=== PATIENT | male | born 1960 | race Caucasian/White ===

== ENCOUNTER → 2021-07-19 | Outpatient (CLI) | payer MEDICARE, MEDICAID ==
[~2021-07-19] MED LIST: CATAPRES PO; CITALOPRAM40 MG PO; DEPAKOTE DR500 MG PO; HALDOL 2MG T2 MG/TAB PO; HALDOL 5MG T5 MG/TAB PO; KLONOPIN 1MG1 M1 PO; PRILOSEC 20MG20 MG PO; ZYPREXA ZYDIS20 MG PO
[2021-07-19 15:20] LABS: BASO # 0.03 K/mm3 (0.02-0.10); EOS # 0.28 K/mm3 (0.04-0.40); EOS % 4.3 % (0.0-4.0); HEMATOCRIT 33.8 % (42.0-52.0); HEMOGLOBIN 10.7 g/dL (13.5-18.0); LYMPH# 1.26 K/mm3 (1.50-4.00); MEAN CELL VOLUME 89 fl (78-100); MEAN CORPUSCULAR HEMOGLOBIN 28 pg (27-31); MEAN CORPUSCULAR HGB CONC 32 g/dL (33-37); MEAN PLATELET VOLUME 9.7 fl (7.4-10.4); MONO # 0.78 K/mm3 (0.20-0.80); NEU # 4.21 K/mm3 (1.40-6.50); PLATELET COUNT 222 K/mm3 (130-400); RED BLOOD COUNT 3.79 M/mm3 (4.20-5.60); RED CELL DISTRIBUTION WIDTH 13.8 % (11.5-14.5); WHITE BLOOD COUNT 6.6 K/mm3 (4.8-10.8)
[2021-07-19 15:29] LABS: POTASSIUM 4.1 mmol/L (3.5-5.1)
[2021-07-19 15:30] LABS: ALBUMIN 3.5 g/dL (3.4-4.8)
[2021-07-19 15:32] LABS: TOTAL PROTEIN 7.4 g/dL (6.2-8.1)
[2021-07-19 15:42] LABS: TOTAL BILIRUBIN 0.1 mg/dL (0.2-1.2)
== END ==
LOC: LAB 14:58
PROVIDERS: Internal Medicine
DX: Z12.5 Encounter for screening for malignant neoplasm of prostate (principal); E78.2 Mixed hyperlipidemia; K90.9 Intestinal malabsorption, unspecified; D64.9 Anemia, unspecified; F91.1 Conduct disorder, childhood-onset type; F51.04 Psychophysiologic insomnia

== ENCOUNTER → 2022-04-29 | Outpatient (CLI) | payer MEDICARE, MEDICAID ==
[2022-04-29 12:45] LABS: BASO # 0.02 K/mm3 (0.02-0.10); HEMATOCRIT 37.6 % (42.0-52.0); LYMPH# 1.18 K/mm3 (1.50-4.00); MEAN CELL VOLUME 90 fl (78-100); MEAN CORPUSCULAR HEMOGLOBIN 26 pg (27-31); MEAN CORPUSCULAR HGB CONC 29 g/dL (33-37); MEAN PLATELET VOLUME 10.7 fl (7.4-10.4); MONO # 0.46 K/mm3 (0.20-0.80); NEU # 3.27 K/mm3 (1.40-6.50); PLATELET COUNT 218 K/mm3 (130-400); RED BLOOD COUNT 4.18 M/mm3 (4.20-5.60); RED CELL DISTRIBUTION WIDTH 16.1 % (11.5-14.5)
[2022-04-29 12:52] LABS: ALBUMIN 3.6 g/dL (3.4-4.8); POTASSIUM 4.2 mmol/L (3.5-5.1)
[2022-04-29 12:53] LABS: CALCIUM 9.2 mg/dL (8.3-10.5)
[2022-04-29 12:54] LABS: TOTAL PROTEIN 7.8 g/dL (6.2-8.1)
[2022-04-29 13:01] LABS: MAGNESIUM 1.9 mg/dL (1.60-2.60)
[2022-04-29 14:05] LABS: TOTAL BILIRUBIN 0.3 mg/dL (0.2-1.2)
[2022-04-29 14:12] LABS: ERYTHROCYTE SEDIMENTATION RATE 13 mm/hr (0-20)
== END ==
LOC: LAB 12:10
PROVIDERS: Internal Medicine
DX: Z12.5 Encounter for screening for malignant neoplasm of prostate (principal); K90.9 Intestinal malabsorption, unspecified; D64.9 Anemia, unspecified; J69.0 Pneumonitis due to inhalation of food and vomit; E78.2 Mixed hyperlipidemia; F91.1 Conduct disorder, childhood-onset type; M21.069 Valgus deformity, not elsewhere classified, unspecified knee

== ENCOUNTER → 2023-04-21 | Outpatient (CLI) | payer MEDICARE, MEDICAID ==
[2023-04-21 10:46] LABS: BASO # 0.03 K/mm3 (0.02-0.10); HEMATOCRIT 34.3 % (42.0-52.0); HEMOGLOBIN 11.1 g/dL (13.5-18.0); LYMPH# 1.18 K/mm3 (1.50-4.00); MEAN CELL VOLUME 89 fl (78-100); MEAN CORPUSCULAR HEMOGLOBIN 29 pg (27-31); MEAN CORPUSCULAR HGB CONC 32 g/dL (33-37); MEAN PLATELET VOLUME 10.3 fl (7.4-10.4); MONO # 0.48 K/mm3 (0.20-0.80); NEU # 3.33 K/mm3 (1.40-6.50); PLATELET COUNT 211 K/mm3 (130-400); RED BLOOD COUNT 3.84 M/mm3 (4.20-5.60); RED CELL DISTRIBUTION WIDTH 14.2 % (11.5-14.5); WHITE BLOOD COUNT 5.1 K/mm3 (4.8-10.8)
[2023-04-21 11:03] LABS: ALBUMIN 3.6 g/dL (3.4-4.8)
[2023-04-21 11:04] LABS: CALCIUM 9.4 mg/dL (8.3-10.5)
[2023-04-21 11:06] LABS: TOTAL PROTEIN 7.4 g/dL (6.2-8.1)
[2023-04-21 11:08] LABS: TOTAL BILIRUBIN 0.3 mg/dL (0.2-1.2)
[2023-04-23 06:22] LABS: VITAMIN D 1,25 DIHYDROXY 69.9 pg/mL (())
== END ==
LOC: LAB 10:28
PROVIDERS: Internal Medicine
DX: Z12.5 Encounter for screening for malignant neoplasm of prostate (principal); K90.9 Intestinal malabsorption, unspecified; D64.9 Anemia, unspecified; E78.2 Mixed hyperlipidemia